=== PATIENT | female | born 1990 | race African-American/Black ===

== ENCOUNTER 2016-09-20 12:40 | Emergency (ER) | payer OTHER ==
[2016-09-20 13:25] LABS: BASOPHILS 0.2 % (0.0-2.0); EOSINOPHILS 1.9 % (0-7); HEMATOCRIT 37.3 % (36.0-48.0); HEMOGLOBIN 12.1 g/dL (12-16); IMMATURE GRANULOCYTES 0.3 % (0-5); LYMPHOCYTES 36.1 % (15-50); MCHC 32.4 g/dL (31.0-37.0); MCV 89.4 fL (80.0-100.0); MEAN PLATELET VOLUME 10.1 fL (7.4-10.4); MONOCYTES 4.8 % (2-11); NEUTROPHILS 56.7 % (40-80); PLATELET COUNT 231 10x3/uL (130-400); RBC 4.17 10x6/uL (4.00-5.40); RDW 12.7 % (11.5-14.5); WBC 10.2 10x3/uL (4.8-10.8)
[2016-09-20 13:41] LABS: ALBUMIN 3.3 g/dL (3.4-5.0); ALKALINE PHOSPHATASE 71 U/L (46-116); ALT (SGPT) 35 U/L (10-68); BILIRUBIN - TOTAL 0.29 mg/dL (0.2-1.3); CALCIUM 8.6 mg/dL (8.5-10.1); CARBON DIOXIDE 23.6 mmol/L (21.0-32.0); CHLORIDE - SERUM 104 mmol/L (98-107); CREATININE - SERUM 0.8 mg/dL (0.6-1.3); POTASSIUM - SERUM 4.2 mmol/L (3.5-5.1); PROTEIN - SERUM 6.8 g/dL (6.4-8.2); SODIUM 139 mmol/L (136-145); UREA NITROGEN 9 mg/dL (7-18); eGFR NON AFRICAN AMERICAN > 90 mL/min (90-120)
[2016-09-20 13:55] LABS: CALC OSMOLALITY 281 mosm/kg (275-300); GLUCOSE 196 mg/dL (74-106)
[2016-09-20 14:53] LABS: APPEARANCE HAZY (CLEAR); BILIRUBIN NEGATIVE (NEGATIVE); COLOR YELLOW (YELLOW); GLUCOSE 50 mg/dL (NEGATIVE); KETONE NEGATIVE (NEGATIVE); LEUKOCYTE ESTERASE 2+ (NEGATIVE); NITRITE NEGATIVE (NEGATIVE); PROTEIN NEGATIVE (NEGATIVE); UROBILINOGEN NORMAL (NORMAL)
[2016-09-20 14:55] LABS: BACTERIA FEW /hpf (NONE SEEN); EPITHELIAL CELLS 0-5 /hpf (0-5); RED CELLS - URINE 0-5 /hpf (0-5)
== END 2016-09-20 15:35 | disposition home or self-care (01) ==
LOC: D.ER 12:40
PROVIDERS: Emergency Medicine
DX: A64 Unspecified sexually transmitted disease (principal); N39.0 Urinary tract infection, site not specified; M54.5 Low back pain

== ENCOUNTER 2017-11-25 13:04 | Emergency (ER) | payer MEDICAID ==
[2017-11-25 14:14] LABS: BASOPHILS 0.2 % (0-2); EOSINOPHILS 1.6 % (0-7); HEMATOCRIT 38.8 % (36.0-48.0); IMMATURE GRANULOCYTES 0.3 % (0-5); LYMPHOCYTES 34.5 % (15-50); MCH 29.5 pg (26.0-34.0); MCHC 33.5 g/dL (31.0-37.0); MCV 88.2 fL (80.0-100.0); MEAN PLATELET VOLUME 10.1 fL (7.4-10.4); MONOCYTES 5.1 % (2-11); NEUTROPHILS 58.3 % (40-80); PLATELET COUNT 242 10x3/uL (130-400); RDW 12.7 % (11.5-14.5); WBC 10.4 10x3/uL (4.8-10.8)
[2017-11-25 14:31] LABS: APPEARANCE CLOUDY (CLEAR); BILIRUBIN NEGATIVE (NEGATIVE); COLOR BROWN YELLOW (YELLOW); GLUCOSE NEGATIVE (NEGATIVE); KETONE NEGATIVE (NEGATIVE); NITRITE NEGATIVE (NEGATIVE); PROTEIN 1+ mg/dL (NEGATIVE); SPECIFIC GRAVITY 1.025 (1.005-1.020); UROBILINOGEN NORMAL (NORMAL)
[2017-11-25 14:32] LABS: BACTERIA FEW /hpf (NONE SEEN); EPITHELIAL CELLS RARE /hpf (0-5); MUCUS <1+ /lpf (NONE SEEN); RED CELLS - URINE >50 /hpf (0-5); WHITE CELLS - URINE OCC /hpf (0-5)
[2017-11-25 14:39] LABS: ALBUMIN 3.3 g/dL (3.4-5.0); ALKALINE PHOSPHATASE 82 U/L (46-116); ALT (SGPT) 23 U/L (10-68); BILIRUBIN - TOTAL 0.27 mg/dL (0.2-1.3); CALC OSMOLALITY 279 mosm/kg (275-300); CALCIUM 8.7 mg/dL (8.5-10.1); CARBON DIOXIDE 27.1 mmol/L (21.0-32.0); CHLORIDE - SERUM 106 mmol/L (98-107); CREATININE - SERUM 0.9 mg/dL (0.6-1.3); GLUCOSE 156 mg/dL (74-106); HCG - QUANTITATIVE (MATERNAL) 0 mIU/mL; POTASSIUM - SERUM 3.8 mmol/L (3.5-5.1); PROTEIN - SERUM 6.6 g/dL (6.4-8.2); SODIUM 139 mmol/L (136-145); UREA NITROGEN 11 mg/dL (7-18); eGFR NON AFRICAN AMERICAN 80 mL/min (90-120)
== END 2017-11-25 15:24 | disposition home or self-care (01) ==
LOC: D.ER 13:04
PROVIDERS: Family Medicine
DX: R10.84 Generalized abdominal pain (principal); K21.9 Gastro-esophageal reflux disease without esophagitis; K59.00 Constipation, unspecified

== ENCOUNTER → 2018-03-10 08:27 | Outpatient (CLI) | payer OTHER | END | disposition home or self-care (01) | LOC: D.NM 03-04 09:30 → D.US 08:27 → D.NM 09:00 | DX: R10.13 Epigastric pain (principal) ==

== ENCOUNTER 2018-05-01 21:20 | Emergency (ER) | payer OTHER ==
[~2018-05-01] VITALS: Ht 165.1 cm; Wt 99.1 kg
[2018-05-01 21:24] VITALS: Ht 165.1 cm; Wt 99.1 kg
[2018-05-01] MEDS ORDERED: AMITIZA24 MCG PO (21:26)
[2018-05-01] MEDS ORDERED: DOXYCYCLINE HY100 M2 PO (21:50)
[2018-05-01] MEDS ORDERED: VENTOLIN HFA18 GM INH (21:50)
[2018-05-01] MEDS ORDERED: PHENERGAN DM SYR5 ML PO (21:50)
[2018-05-01 22:27] VITALS: BP 124/80
== END 2018-05-01 22:27 | disposition home or self-care (01) ==
LOC: D.ER 21:20
DX: J01.90 Acute sinusitis, unspecified (principal); J20.9 Acute bronchitis, unspecified; R09.89 Other specified symptoms and signs involving the circulatory and respiratory systems; R53.81 Other malaise

== ENCOUNTER 2019-01-04 23:01 | Emergency (ER) | payer SELFPAY ==
[~2019-01-04] VITALS: Ht 165.1 cm; Wt 96.8 kg
[~2019-01-04 23:01] MED LIST: AMITIZA24 MCG PO; DOXYCYCLINE HY100 M2 PO; PHENERGAN DM SYR5 ML PO; VENTOLIN HFA18 GM INH
[2019-01-04 23:06] VITALS: Ht 165.1 cm; Wt 96.8 kg
[2019-01-04] MEDS ORDERED: CHRONULAC30 ML (23:08)
[2019-01-05] MEDS ORDERED: TORADOL10 MG PO (01:08)
[2019-01-05 01:50] VITALS: BP 122/85
== END 2019-01-05 01:50 | disposition home or self-care (01) ==
LOC: D.ER 23:01
DX: R51 Headache (principal)